=== PATIENT | female | born 1945 | race Caucasian/White ===

== ENCOUNTER 2019-06-11 09:34 | Day surgery (SDC) | payer MEDICARE, OTHER ==
[~2019-06-11 09:34] MED LIST: ACETAMINOPHEN 500 MG TABLET PO ONE; CEFAZOLIN 2 Gram 2 GM/50 ML BAG IVPB ONE; FAMOTIDINE 20MG TABLET PO ONE; METOCLOPRAMIDE 10 MG TABLET PO ONE; SCOPOLAMINE 1 PATCH TDSY TD ONE; VANCOMYCIN 1GM/200ML PREMIX 1 GM/200 ML PIGGYBACK IVPB ONE
[2019-06-11] MEDS ORDERED: LIDOCAINE 2% MDV (20MG/ML) 20ML VIAL IV ONE (09:35)
[2019-06-11] MEDS ORDERED: DEXAMETHASONE 4 MG/ML 1ML VIAL IVP ONE (09:35)
[2019-06-11] MEDS ORDERED: PROPOFOL 10 MG/ML VIAL IV ONE (09:35)
[2019-06-11] MEDS ORDERED: MIDAZOLAM HCL 2MG/2ML VIAL IV ONE (09:35)
[2019-06-11] MEDS ORDERED: ROPIVACAINE HCL (NAROPIN) /PF 5MG/ML 20ML VIAL IV ONE (09:35)
[2019-06-11] MEDS ORDERED: MAGNESIUM HYDROXIDE 30 ML UDC PO PRN ×2 (10:02→10:25)
[2019-06-11] MEDS ORDERED: AL HYDROX/MAG HYDROX 30ML UD PO PRN ×2 (10:02→10:25)
[2019-06-11] MEDS ORDERED: BISACODYL 10 MG SUPP RC PRN ×2 (10:02→10:25)
[2019-06-11] MEDS ORDERED: DIPHENHYDRAMINE HCL 25 MG CAPSULE PO PRN ×2 (10:02→10:25)
[2019-06-11] MEDS ORDERED: ONDANSETRON HCL IV 4 MG/2 ML VIAL IVP PRN (10:02)
[2019-06-11] MEDS ORDERED: HYDROCODONE/APAP 5/325MG TABLET PO PRN ×2 (10:02)
[2019-06-11] MEDS ORDERED: DEXTROSE 5 % AND 0.9 % NACL 1,000 ML IV PRN ×2 (10:02→15:00)
[2019-06-11] MEDS ORDERED: ACETAMINOPHEN W/ CODEINE 300MG/60MG TABLET PO PRN ×2 (10:02→10:25)
[2019-06-11] MEDS ORDERED: PROMETHAZINE HCL 12.5 MG in 0.9 % SODIUM CHLORIDE 100ML 50 ML IVPB PRN (10:02)
[2019-06-11] MEDS ORDERED: TRAMADOL HCL 50 MG TABLET PO PRN ×4 (10:02→10:25)
[2019-06-11] MEDS ORDERED: ACETAMINOPHEN 325 MG TAB PO PRN ×2 (10:02→10:25)
[2019-06-11] MEDS ORDERED: NALOXONE 0.4 MG/1 ML VIAL IVP PRN ×2 (10:02→10:25)
[2019-06-11] MEDS ORDERED: KETOROLAC 30 MG/ML VIAL IVP PRN ×2 (10:02→10:25)
[2019-06-11] MEDS ORDERED: METOCLOPRAMIDE HCL 10 MG/2 ML VIAL IVP PRN (10:02)
[2019-06-11] MEDS ORDERED: HYDROCODONE/APAP 7.5/325MG TABLET PO PRN ×2 (10:02→10:25)
[2019-06-11] MEDS ORDERED: ZOLPIDEM TARTRATE 5 MG TABLET PO PRN (10:02)
[2019-06-11] MEDS ORDERED: HYDROMORPHONE HCL 2 MG/ML VIAL IM PRN ×4 (10:02→10:25)
[2019-06-11] MEDS ORDERED: ACETAMINOPHEN W/ CODEINE 300MG/30MG TABLET PO PRN ×4 (10:02→10:25)
[2019-06-11] MEDS ORDERED: METOCLOPRAMIDE 10 MG TABLET PO PRN (10:25)
[2019-06-11] MEDS ORDERED: ONDANSETRON 4 MG ODT TABLET SL PRN (10:25)
[2019-06-11] MEDS ORDERED: PROMETHAZINE HCL 25 MG TABLET PO PRN (10:25)
[2019-06-11] MEDS ORDERED: RINGERS SOLUTION,LACTATED 1,000 ML IV ONE ×2 (10:30→13:15)
[2019-06-11 10:43] LABS: ABO GROUP A; ANTIBODY SCREEN NEGATIVE (NEGATIVE); RH TYPE POSITIVE
[2019-06-11] MEDS ORDERED: VANCOMYCIN HCL 1 GM VIAL IU ONE (13:13)
[2019-06-11] MEDS ORDERED: BUPIVACAINE LIPOSOME 266MG/20ML VIAL SQ ONE (13:13)
[2019-06-11] MEDS ORDERED: VANCOMYCIN HCL 1 GM VIAL IR ONE (13:13)
[2019-06-11] MEDS ORDERED: BUPIVACAINE 0.5% W/EPI MPF 30 ML VIAL IU ONE (13:13)
[2019-06-11] MEDS ORDERED: TRANEXAMIC ACID 1,000 MG/10 ML ML IU ONE (13:13)
[2019-06-11] MEDS ORDERED: TRANEXAMIC ACID 1,000 MG/10 ML ML IVPB ONE (13:13)
[2019-06-11] MEDS ORDERED: VANCOMYCIN HCL 500 MG in 0.9 % SODIUM CHLORIDE 100ML 100 ML IVPB SCH (14:30)
[2019-06-11] MEDS: HYDROCODONE/APAP 5/325MG TABLET PO PRN ×2 (16:11→21:11)
--- NOTE | 2019-06-11 16:57 | Rehab Evaluation ---
Patient Information - Patient Information Diagnosis: L knee OA Ordered Treatment: PT Evaluate and Treat Status: Initial Evaluation Surgery: Yes (L TKA) Date of Surgery: 06/11/19 Past Medical/Surgical Hx: PAST MEDICAL/SURGICAL HISTORY Past Surgical History BILATERAL SHOULDER SX BILAT CTR HYST KNEE SX OOPHORECTOMY RTKA 2013 LEFT ENDARTERECTOMY PMH - Respiratory Hx Respiratory Disorders Yes Hx Bronchitis Yes Hx Pneumonia Yes Hx Sleep Apnea Yes Hx of CPAP Yes Hx of SOB Yes: WITH STAIR CLIMBING PMH - Cardiovascular Hx Cardiovascular Disorders Yes Hx Hypertension Yes: GOOD CONTROL ON MEDS Hx Vascular Disease Yes Exercise Tolerance Fair Comment: HYPERLIPIDEMIA PMH - Neuro Hx Neurological Disorders No PMH - GI Hx Gastrointestinal Disorders No PMH - Hx Genitourinary Disorders Yes Hx Bladder Problem Yes: LEAKS WEARS A PAD PMH - Endocrine Hx Endocrine Disorders No PMH - Musculoskeletal Hx Musculoskeletal Disorders Yes Hx Arthritis Yes: LEFT KNEE, SPINE PMH - Psych Hx Psychiatric Problems Yes Hx Anxiety Yes PMH - Hematology/Oncology Hx Hematology/Oncology Yes Disorders Hx Blood Transfusion Reaction No Premorbid Status: Detail (The patient was independent with all mobility prior to surgery.) Social History: Detail (The patient lives in a one story house with significant other with 1 step and two hand rails at the garage enterance. The patient's daughter is staying with her s/p surgery. The bathroom is equipped with : a walk in shower, shower bench, hand held shower and elevated toilet. There are grab bars by the shower but not by the toilet. The patient has a walker with wheels and a cane.) Precautions: [place], Fall, Other (WBAT on the L LE) - Time With Patient Total Time Spent With Patient (Min): 30 Treatment Procedures: Detail (Initial Evaluation low complexity, gait training.) Subjective Information - Subjective Information Per Patient (The patient had complaints of level 3 pain in L knee using 0-10 pain scale.) Objective Data - Mental Status Patient Orientation: Oriented x3 - Visual Perception Appears within normal limits for therapeutic activities - ROM Not within normal limits (The patient's L knee AROM was limited as to be expected s/p surgery. All other AROM was WNL.) - Strength/Tone Not within normal limits (The patient's LE strength was not tested s/p however was functional.) - Bed Mobility Independent (The patient was independent with supine to sit transfer.) - Transfers Independent (The patient was independent with sit to and from stand transfer.) - Balance Balance Sitting: Good Balance Standing: Good - Sensation Intact - Gait Detail (The patient ambulated with front wheeled walker a distance of 108 feet x 1 with supervision for safety only WBAT on the L LE.) Therapy Assessment - Therapy Assessment Detail (The patient was independent with bed mobility and transfers and required supervision for sfaety only with ambulation. Anticipate the patient will meet inpt. PT goals in 1 to 2 sessions.) Problem List - Problem List Physical Therapy Problem List: Detail (Decreased L knee AROM and L LE strength as to be expected following surgery.) Goals - Goals Physical Therapy Goals: 1) The patient will be independent with TKA HEP. 2) The patient will ambulate on steps with supervision for safety only using proper technique. Prognosis - Prognosis Good Plan - Plan Physical Therapy Plan: PT 1-2 sessions for gait training on stairs and instruction in TKA HEP.
--- NOTE | 2019-06-11 17:00 | Rehab Evaluation ---
Patient Information - Patient Information Diagnosis: Left TKA Ordered Treatment: OT Evaluate and Treat Status: Initial Evaluation Surgery: Yes (Left TKA) Date of Surgery: 06/11/19 Past Medical/Surgical Hx: PAST MEDICAL/SURGICAL HISTORY Past Surgical History BILATERAL SHOULDER SX BILAT CTR HYST KNEE SX OOPHORECTOMY RTKA 2013 LEFT ENDARTERECTOMY PMH - Respiratory Hx Respiratory Disorders Yes Hx Bronchitis Yes Hx Pneumonia Yes Hx Sleep Apnea Yes Hx of CPAP Yes Hx of SOB Yes: WITH STAIR CLIMBING PMH - Cardiovascular Hx Cardiovascular Disorders Yes Hx Hypertension Yes: GOOD CONTROL ON MEDS Hx Vascular Disease Yes Exercise Tolerance Fair Comment: HYPERLIPIDEMIA PMH - Neuro Hx Neurological Disorders No PMH - GI Hx Gastrointestinal Disorders No PMH - Hx Genitourinary Disorders Yes Hx Bladder Problem Yes: LEAKS WEARS A PAD PMH - Endocrine Hx Endocrine Disorders No PMH - Musculoskeletal Hx Musculoskeletal Disorders Yes Hx Arthritis Yes: LEFT KNEE, SPINE PMH - Psych Hx Psychiatric Problems Yes Hx Anxiety Yes PMH - Hematology/Oncology Hx Hematology/Oncology Yes Disorders Hx Blood Transfusion Reaction No Premorbid Status: Detail (Patient independent with all ADLs and mobility [employer].) Social History: Detail (Patient lives in a 1-story house with significant other who is in poor health. Her daughter (Estella) will be staying with her for 1 week following d/c home. She has 1 step with bilateral handrail to enter home, walk- in shower w/grab bars (daughter will be bringing attachment for hand held shower head), and elevated toilet seat (no grab bars). Patient also has available a 2WW, shower chair and bench, single point cane, and LH shoe horn.) Precautions: [place], Fall, Other (WBAT) - Time With Patient Total Time Spent With Patient (Min): 20 (Patient evaluated with PT) Treatment Procedures: Detail (OT eval Low) Subjective Information - Subjective Information Per Patient Objective Data - Pain Pain Present: Yes (L knee) Pain Intensity: 3 Pain Scale Used: Numeric (1 - 10) - Mental Status Patient Orientation: Oriented x3 - Visual Perception Appears within normal limits for therapeutic activities - ROM Within normal limits (BUE's) - Strength/Tone Within normal limits (BUE's) - Coordination Appears within normal limits for therapeutic activities - Bed Mobility Independent (supine to sit with elevated head of bed) - Transfers Independent (sit<>stand t/f) - Balance Balance Sitting: Good - Gait Detail (see PT note for details) - ADL's/IADL's Detail (Patient ambulated with 2WW independently from bed into bathroom to change soiled brief and gown. Independent toilet t/f sit<>stand. Independent with toilet H. Independent doff of soiled breif. Patient required min A with feet thread through brief due to shorter height and high elevated toilet seat. Patient was able to reach bilateral feet however and feel she will be independent with this at home. Patient was educated and demonstrated independence with modified LB drsg technique. She has a LH shoe horn available at home but will be wearing slip on shoes. Patient's daughter will be staying for one week to assist with any ADLs patient is unable to do independently at this time.) Therapy Assessment - Therapy Assessment Detail (Patient safe and Independent with LB drsg with modified LB drsg technique. No further inpatient OT needed at this time.) Prognosis - Prognosis Good Plan - Plan Occupational Therapy Plan: Patient to be d/c'd from inpatient OT at this time.
[2019-06-11] MEDS: FERROUS SULFATE 325 MG TAB PO SCH (21:11)
[2019-06-11] MEDS: DOCUSATE SODIUM 100 MG CAPSULE PO SCH (21:11)
[2019-06-11] MEDS ORDERED: DOCUSATE SODIUM 100 MG CAPSULE PO SCH (22:00)
[2019-06-11] MEDS: VANCOMYCIN 1GM/200ML PREMIX 1 GM/200 ML PIGGYBACK IVPB SCH (22:28)
[2019-06-12] MEDS: HYDROCODONE/APAP 5/325MG TABLET PO PRN ×3 (02:17→13:59)
[2019-06-12 06:36] LABS: HEMOGLOBIN 11.9 gm/dl (11.6-16.0)
--- NOTE | 2019-06-12 08:00 | Operative Note ---
DATE OF SURGERY: 06/11/2019 PREOPERATIVE DIAGNOSIS: END STAGE LEFT KNEE ARTHROSIS. POSTOPERATIVE DIAGNOSIS: END STAGE LEFT KNEE ARTHROSIS. OPERATION: LEFT TOTAL KNEE ARTHROPLASTY. SURGEON: Andrew Hobbs MD ANESTHESIA: Spinal. ANESTHESIA PROVIDER: TRISTAN Lockett CRNA COMPLICATIONS: None. ESTIMATED BLOOD LOSS: Minimal. TOURNIQUET TIME: Approximately 6 minutes. OPERATIVE FINDINGS: [id number] medial compartment arthrosis. COMPONENTS PLACED: A 2 gram Vancomycin cemented [employer] Journey II total knee arthroplasty system Oxinium, size 4 femoral component, a size 3 tibial baseplate, a 9 mm thick tibial poly insert, and 29 mm cemented patellar component. INDICATIONS: This is a 74-year-old female who is status post right knee arthroplasty done years ago has had persistent pain and dysfunction in the knee. She has failed nonoperative treatment including injections, anti-inflammatories and she is scheduled for the procedure above. I explained all risks and benefits in detail for the diagnosis and procedure including but not limited to infection, nerve injury, vessel injury, persistent pain, stiffness, numbness, tingling in the knee, periprosthetic fracture, need for resection arthroplasty if components become infected or loosen, nerve injury, vessel injury, blood clot, need for further procedures and need for anticoagulation to prevent blood clots and risks associated with these medications, and need for further procedures. All of her questions were answered. Rehab course was outlined. She agreed to proceed. PROCEDURE: The patient brought to the OR, placed in the supine position in the Department of Surgery and spinal anesthesia induced. The left lower extremity and knee were prepped and draped in sterile fashion. The left knee was prepped again with ChloraPrep after it was draped. Intraoperative timeout was performed. Next, the leg was exsanguinated. There was no tourniquet used during the entire case. Next, skin and subcutaneous tissue dissected down to the capsule. Incised the capsule medially around the medial border of the patella to the tibial tubercle. Incised the vastus medialis in line with its fibers. Everted the patella, partially resected the retropatellar fat pad, elevated the capsule subperiosteally and medially. We used Aquamantys cautery during the entire case at every level of the procedure. Next then we visualized the knee, she had medial compartment chondromalacia, drilled the intercondylar drills hole and , inserted the intramedullary guide lauryn, 6-degree cutting block. Aligned off the distal femoral condyles, pinned it in the +2 mm position, and then cut the distal femoral condyle. Next, we placed a sizing jig on the distal femoral condyle, and sized the knee on right to a size 4. We placed the cutting jig in the previously placed pin holes and then dialed in the anterior console, flush without notching. We cut that cut. It was a good flush cut. We then cut the remaining chamfer cuts in the usual fashion. Next, then placed a size 4 femoral trial component, centered it, pinned it, and removed the osteophytes periphery and inserted the resection collet, reamed out and box Osteomed out cruciate bone block. Next, then attention was turned to the tibia, exposed the proximal tibia, and then seated the external alignment jig spikes in the tubercular groove off the central third tibial tubercle 2 fingerbreadths distally off the anterior tibial cortex in reference for a 7 mm cut off the higher lateral plateau. We pinned the cutting jig provisionally in place, with two anterior posterior pins. Next we rechecked alignment with the drop lauryn and cutting jig, alignment of the tibial anatomic axis, and cross-pinned the cutting jig to complete its fixation, and cut the tibia. Next then we removed osteophytes off the posterior femoral condyles. Checked the flexion/extension gaps. They are basically sized up to a 9 mm thick poly insert, 1-2 mm of varus/valgus laxity in flexion/extension and symmetric gaps the size that we used. Next, took knee in flexion and sized the tibial baseplate size 3 and replaced all trial components. Set the rotation tibial baseplate again in extension using the alignment lauryn centered on hip joint and ankle joint. Marked ten souza off the anterior cortex off the laser souza of the tibial baseplate. Attention was turned to the patella, and measured the patella to be 21 mm with the cutting jig at 12-13 mm to allow for a 9 mm thick poly insert. We cut the patella, re-measured it right on 12-13 mm size to be 29 mm, medialized as much as possible. Chamfered off lateral patellar facet, drilled 3 peg holes, did a trial range of motion and mixed cement. The patella tracked nicely handsfree with full extension, flexion to 134 degrees, again symmetric flexion/extension gaps. Next, then took the knee into flexion, set the tibial baseplate off the previously placed electrocautery souza, pinned it in place and drilled out and keep punched the keel hole. Placed a bone plug in the femoral canal hole. We placed a drill bit back in the tibial keel hole and pre-coated both surfaces, changed gloves, brought in a clean sheet and copiously irrigated and injected our mixture at 0.5% Marcaine with epi, tranexamic acid, and Exparel in the posterior capsule as well after Aquamantys cauterizing. Next we packed down the tibial component first, removed any excess cement and then the femoral component, removed any excess cement, then placed a trial tibial poly liner, held the knee in extension and clamped down the patella component until the cement hardened. Once the cement hardened, we took the knee into flexion, distracted the knee with bone hook and sponge. Removed the trial tibial poly insert and then removed any excess cement around the edges of the components. Irrigated copiously. We inserted the real tibial poly insert and verified it was interlocked mediolaterally. Next, then closed the knee capsule in flexion and vastus split using running #2 Quill suture, injected the rest of our mixture more superficially now in the subcutaneous area and mediolateral periosteum capsule and then closed the skin with 2-0 Vicryl, and then KIA dressing was applied and an Garth wrap. The patient tolerated the procedure well. No intraoperative complications. Sponge, needle, and blade counts correct. Sent to recovery stable, neurovascularly intact. Se will be discharged to the floor. She will likely discharge home tomorrow. cc: Dr. Rojelio Dang JOB NUMBER: [id number] MTDD
[2019-06-12] MEDS: FERROUS SULFATE 325 MG TAB PO SCH (09:17)
[2019-06-12] MEDS: DOCUSATE SODIUM 100 MG CAPSULE PO SCH (09:17)
[2019-06-12] MEDS ORDERED: CELECOXIB 100 MG CAPSULE PO SCH (10:00)
[2019-06-12] MEDS ORDERED: RIVAROXABAN 10 MG TABLET PO SCH (10:00)
[2019-06-12] MEDS ORDERED: CITALOPRAM 20 MG TABLET PO SCH (10:00)
[2019-06-12] MEDS ORDERED: LOSARTAN POTASSIUM 25 MG TABLET PO SCH (10:00)
[2019-06-12] MEDS: VANCOMYCIN 1GM/200ML PREMIX 1 GM/200 ML PIGGYBACK IVPB SCH (10:08)
--- NOTE | 2019-06-12 12:00 | Physical Therapy Tx Note ---
Physical Therapy Tx Note - Treatment Note Tolerated: Good Total Time Spent With Patient: 25 Physical Therapy Tx Note: Detail (The patient was up in chair when PT arrived.The patient was dressed independently with upper body and minimal assist to put L LE in pant leg. The patient required minimal assist to put left shoe on. Pt. states she has a shoe horn at home. The patient ambulated with front wheeled walker 120 feet x 1 independently WBAT on the L LE. The patient a mbulated on 3 steps with use of one railing using proper technique with supervision for safety only. The patient completed TKA HEP including supine heel slides, ankle pumps, quad sets, hamstring sets, gluteal sets and SLR. The patient stated she will be wearing capris at home which she feels she can put on independently. The patient has met all inpt. PT goals and is discharged from inpt. PT .) Physical Therapy Problem List: Detail (Decreased L knee AROM and L LE strength as to be expected following surgery.) Physical Therapy Goals: 1) The patient will be independent with TKA HEP. (Goal Met). 2) The patient will ambulate on steps with supervision for safety only using proper technique.(Goal Met) Physical Therapy Plan: The patient has met all inpt. PT goals and is discharged from inpt. PT. The patient is to receive Home PT.
== END 2019-06-12 14:10 | disposition home health service (06) ==
LOC: SUR 09:34 → MEDSURG 14:54 → SUR 06-12 14:10
PROVIDERS: ATTEND Orthopaedic Surgery
DX: M17.12 Unilateral primary osteoarthritis, left knee (principal); I10 Essential (primary) hypertension; E78.00 Pure hypercholesterolemia, unspecified; Z79.01 Long term (current) use of anticoagulants; J44.9 Chronic obstructive pulmonary disease, unspecified; R06.02 Shortness of breath; I65.29 Occlusion and stenosis of unspecified carotid artery; G47.33 Obstructive sleep apnea (adult) (pediatric); F17.210 Nicotine dependence, cigarettes, uncomplicated
CPT/HCPCS: 36416; 76942; 82948; 85014; 85018; 86850; 86900; 86901; C1776; J1885; J3370; J7120